=== PATIENT | female | born 1945 | race Caucasian/White ===

== ENCOUNTER → 2018-04-07 | Outpatient (CLI) | payer OTHER | LOC: CAT 11:14 | DX: Z13.6 Encounter for screening for cardiovascular disorders (principal); E78.00 Pure hypercholesterolemia, unspecified ==

== ENCOUNTER → 2018-05-29 | Outpatient (CLI) | payer OTHER ==
--- NOTE | ~2018-05-29 | 2DMMODE ---
[facility] [place] [address] 2 D/M-MODE ECHOCARDIOGRAM Name: DHRUVLOCALE CORTEZ Room #: REG [facility]#: [id number] Admission: 05/29/18 Attend Phys: Samuel Martinez MD Discharge: Date of : 47 Date of Service: 05/29/18 0943 Report #: [id number] THIS REPORT FOR: //name// APPROVED REPORT Study performed: 05/29/2018 08:18:41 EXAM: Comprehensive 2D, Doppler, and color-flow Echocardiogram Patient Location: Out-Patient Status: routine BSA: 1.62 HR: 60 bpm BP: 130/80 mmHg Rhythm: NSR Other Information Study Quality: Good Indications Dyspnea, increased calcium score. Hx: TIA, HLP, tobacco abuse 2D Dimensions RVDd: 30.70 mm IVSd: 9.79 (7-11mm) LVOT Diam: 19.83 (18-24mm) LVDd: 44.72 mm PWd: 6.61 (7-11mm) Ascending Ao: 29.44 (22-36mm) LVDs: 33.03 (25-40mm) Aortic Root: 32.31 mm Volumes Left Atrial Volume (Systole) Single Plane 4CH: 39.91 mL Single Plane 2CH: 55.44 mL LA ESV Index: 32.00 mL/m2 Aortic Valve AoV Peak Elian.: 1.34 m/s AO Peak Gr.: 7.18 mmHg LVOT Max P.01 mmHg LVOT Max V: 0.87 m/s DEYANIRA Vmax: 2.00 cm2 Mitral Valve E/A Ratio: 0.9 MV Decel. Time: 195.44 ms MV E Max Elian.: 0.81 m/s [facility] [address] [address] 2 D/M-MODE ECHOCARDIOGRAM Name: LOC BARTLETT Room #: [facility]#: [id number] Admission: 05/29/18 Attend Phys: Samuel Martinez MD Discharge: Date of : 47 Date of Service: 05/29/18 0943 Report #: [id number] MV A Elian.: 0.87 m/s MV PHT: 56.68 ms IVRT: 83.04 ms Pulmonary Valve PV Peak Elian.: 0.86 m/s PV Peak Gr.: 2.96 mmHg Pulmonary Vein P Vein S: 0.62 m/s P Vein A: 0.33 m/s P Vein D: 0.37 m/s P Vein A Dur.: 129.2 msec P Vein S/D Ratio: 1.68 Tricuspid Valve TR Peak Elian.: 2.28 m/s RAP Estimate: 5.00 mmHg TR Peak Gr.: 20.71 mmHg PA Pressure: 26.00 mmHg Left Ventricle The left ventricle is normal size. There is normal left ventricular wall thickness. Left ventricular systolic function is low normal. LVEF is 50%. Mild diastolic dysfunction is present (impaired relaxation pattern). Right Ventricle The right ventricle is normal size. The right ventricular systolic function is normal. Atria The left atrium size is normal. The right atrium size is normal. Aortic Valve The Aortic valve is minimally sclerotic. Trace aortic regurgitation. There is no aortic valvular stenosis. Mitral Valve Mitral valve leaflets are minimally calcified. Trace to mild mitral regurgitation. Tricuspid Valve The tricuspid valve is normal in structure. Trace tricuspid regurgitation. Estimated PAP is 25-30mmHg. Pulmonic Valve The pulmonary valve is normal in structure. Trace pulmonic regurgitation. [facility] [address] [place] [address] 2 D/M-MODE ECHOCARDIOGRAM Name: LOC BARTLETT DANA Room #: REG [facility]#: [id number] Admission: 05/29/18 Attend Phys: Samuel Martinez MD Discharge: Date of : 47 Date of Service: 05/29/18 0943 Report #: [id number] Great Vessels The aortic root is normal in size. The ascending aorta is normal in size. IVC is normal in size and collapses >50% with inspiration. Pericardium There is no pericardial effusion. <Conclusion> The left ventricle is normal size. There is normal left ventricular wall thickness. Left ventricular systolic function is low normal. Mild diastolic dysfunction is present (impaired relaxation pattern). The right ventricle is normal size. The left atrium size is normal. The Aortic valve is minimally sclerotic. Trace to mild mitral regurgitation. Trace tricuspid regurgitation. Estimated PAP is 25-30mmHg. <ELECTRONICALLY SIGNED> By: Samuel Martinez MD 05/29/1843 2 2 Samuel Martinez MD /INF
== END ==
LOC: CV 07:31
DX: I35.8 Other nonrheumatic aortic valve disorders (principal); I34.8 Other nonrheumatic mitral valve disorders; E78.5 Hyperlipidemia, unspecified; G45.9 Transient cerebral ischemic attack, unspecified; Z87.891 Personal history of nicotine dependence

== ENCOUNTER → 2019-08-06 | Outpatient (CLI) | payer OTHER | LOC: SJCVC 09:59 | DX: I49.3 Ventricular premature depolarization (principal); I25.10 Atherosclerotic heart disease of native coronary artery without angina pectoris; E78.00 Pure hypercholesterolemia, unspecified; I73.9 Peripheral vascular disease, unspecified; F17.200 Nicotine dependence, unspecified, uncomplicated; Z90.710 Acquired absence of both cervix and uterus; Z79.899 Other long term (current) drug therapy; Z86.73 Personal history of transient ischemic attack (TIA), and cerebral infarction without residual deficits ==

== ENCOUNTER → 2020-08-19 | Outpatient (CLI) | payer OTHER | LOC: SJCVCIMAG 07:34 | PROVIDERS: ATTEND Internal Medicine Cardiovascular Disease | DX: I35.8 Other nonrheumatic aortic valve disorders (principal); R94.31 Abnormal electrocardiogram [ECG] [EKG]; I25.10 Atherosclerotic heart disease of native coronary artery without angina pectoris; I10 Essential (primary) hypertension; I49.3 Ventricular premature depolarization; E78.00 Pure hypercholesterolemia, unspecified; E78.5 Hyperlipidemia, unspecified; F17.200 Nicotine dependence, unspecified, uncomplicated; Z90.710 Acquired absence of both cervix and uterus; Z79.82 Long term (current) use of aspirin; Z79.899 Other long term (current) drug therapy; Z86.73 Personal history of transient ischemic attack (TIA), and cerebral infarction without residual deficits; Z82.49 Family history of ischemic heart disease and other diseases of the circulatory system ==